=== PATIENT | female | born 1975 | race Native Hawaiian/Other Pacific Islander ===

== ENCOUNTER 2023-08-13 09:56 | Outpatient (CLI) | payer BC, SELFPAY ==
--- NOTE | 2023-08-13 10:16 | MM_ITS ---
PROCEDURE INFORMATION: Exam: Bilateral Screening 3D Mammography Exam date and time: 08/13/2023 10:02 AM Age: 48 years old Clinical indication: Screening examination TECHNIQUE: Imaging protocol: Bilateral Screening tomosynthesis and 2D mammography including computer-aided detection (CAD) when performed. COMPARISON: Screening-Bilateral Mammography 05/17/2021 1:33 PM FINDINGS: MAMMOGRAPHY: Breast composition: The breasts are extremely dense, which lowers the sensitivity of mammography. Mass: None. Architectural distortion: None. Calcifications: No suspicious calcifications. Asymmetric density: None. Skin thickening: None. Axillary adenopathy: None. IMPRESSION: No mammographic evidence of malignancy. Annual screening is recommended unless otherwise clinically indicated. ASSESSMENT: BI-RADS Category 1: Negative
== END 2023-08-13 23:59 ==
PROVIDERS: PCP Nurse Practitioner Family; Visit Provider Nurse Practitioner Family
DX: Z12.31 Encounter for screening mammogram for malignant neoplasm of breast (principal)
CPT/HCPCS: 77063; 77067

== ENCOUNTER 2024-09-24 07:22 | Outpatient (CLI) | payer OTHER, SELFPAY ==
--- NOTE | 2024-09-24 07:27 | US_ITS ---
FINAL REPORT CLINICAL HISTORY: rt breast nodule -- rt breast biopsy -- dr leonila méndez FINDINGS: ULTRASOUND-GUIDED RIGHT BREAST CORE BIOPSY HISTORY: Right breast mass TECHNIQUE: The right breast was prepped in a routine sterile fashion and locally anesthetized with 1% lidocaine. Using sonographic guidance a 15 gauge guide needle was directed toward the lesion of interest. The needle was positioned within the outer periphery of the lesion. A total of 4 passes were made with a 16 gauge core biopsy needle. A biopsy marker clip was deployed in satisfactory position. A post biopsy mammogram was performed and dictated separately. Limited postbiopsy images showed no evidence of significant hemorrhage. Procedure was well tolerated. IMPRESSION: 1. Technically successful image guided biopsy of right breast lesion as above. Authenticated and ERN
== END 2024-09-24 23:59 | disposition home or self-care (01) ==
LOC: RAD 07:23
PROVIDERS: PCP Nurse Practitioner Family; Visit Provider Obstetrics & Gynecology
DX: R92.8 Other abnormal and inconclusive findings on diagnostic imaging of breast (principal)
CPT/HCPCS: 19083; 77065